=== PATIENT | female | born 1965 | race Caucasian/White ===

== ENCOUNTER 2016-04-14 20:23 | Emergency (ER) | payer OTHER ==
[2016-04-14 20:53] VITALS: RESP 18
[2016-04-14] MEDS ORDERED: SODIUM CHLORIDE 0.9% 1,000 ML IV STA ×2 (21:13)
[2016-04-14] MEDS ORDERED: ONDANSETRON 4 MG/2 ML VIAL IVP STA (21:13)
[2016-04-14] MEDS ORDERED: HYDROmorphone 1 MG/ML 1 ML SYRINGE IVP STA ×2 (21:13→22:28)
--- NOTE | 2016-04-14 21:15 | ED ---
General Adult HPI - General Chief complaint: Abdominal Pain Stated complaint: back & lower abdominal pain Time Seen by Provider: 04/14/16 21:05 Source: patient, RN notes reviewed Mode of arrival: wheelchair Limitations: no limitations - History of Present Illness Initial comments: Patient 51-year-old female who presents emergency room today with chief complaint of right-sided flank pain that started earlier this morning approximate 7:30 AM. She does admit that she's felt nauseated. She missed the pain is located on the right sides or to the back wraps around to the front. Patient states never had pain similar to this in the past. Patient denies any other associated symptoms or complaints. Patient denies any recent fever, chills , shortness of breath, chest pain, back pain, vomiting, numbness or tingling, dysuria or hematuria, constipation or diarrhea, headaches or visual changes, or any other complaints. - Related Data Previous Rx's Medication Instructions Recorded Hydrocodone/Acetaminophen [[place] 1 each PO Q6HR PRN #20 tab 04/14/16 5-325] Ibuprofen [Motrin] 600 mg PO Q6HR PRN #40 day 04/14/16 Ondansetron Odt [Zofran ODT] 4 mg PO Q8HR PRN #15 tab 04/14/16 Tamsulosin [Flomax] 0.4 mg PO DAILY #3 cap 04/14/16 Allergies Allergy/AdvReac Type Severity Reaction Status Date / Time Penicillins Allergy Unknown Verified 04/14/16 20:51 Review of Systems ROS Statement: Those systems with pertinent positive or pertinent negative responses have been documented in the HPI. ROS Other: All systems not noted in ROS Statement are negative. Past Medical History Past Medical History: Coronary Artery Disease (CAD), Chest Pain / Angina, Hyperlipidemia, Hypertension History of Any Multi-Drug Resistant Organisms: None Reported Past Surgical History: Section, Tonsillectomy, Tubal Ligation Past Psychological History: No Psychological Hx Reported Smoking Status: Current every day smoker Past Alcohol Use History: None Reported Past Drug Use History: None Reported General Exam - General Exam Comments Initial Comments: General: The patient is awake and alert, in no distress, and does not appear acutely ill. Eye: Pupils are equal, round and reactive to light, extra-ocular movements are intact. No nystagmus. There is normal conjunctiva bilaterally. No signs of icterus. Ears, nose, mouth and throat: There are moist mucous membranes and no oral lesions. Neck: The neck is supple, there is no tenderness or JVD. Cardiovascular: There is a regular rate and rhythm. No murmur, rub or gallop is appreciated. Respiratory: Lungs are clear to auscultation, respirations are non-labored, breath sounds are equal. No wheezes, stridor, rales, or rhonchi. Gastrointestinal: Normal appearance abdomen. Normal bowel sounds. Abdomen soft on palpation. Patient does have tenderness right upper quadrant with minimal tenderness in the right lower quadrant. Mild right-sided CVA tenderness. No guarding. No rebound. Musculoskeletal: Normal ROM, no tenderness. Strength 5/5. Sensation intact. Pulses equal bilaterally 2+. Neurological: A&O x 3. CN II-XII intact, There are no obvious motor or sensory deficits. Coordination appears grossly intact. Speech is normal. Skin: Skin is warm and dry and no rashes or lesions are noted. Psychiatric: Cooperative, appropriate mood & affect, normal judgment. Limitations: no limitations Course Vital Signs 04/14/16 20:51 Temperature 97.7 F Pulse Rate 77 Respiratory 18 Rate Blood Pressure 161/70 O2 Sat by Pulse 97 Oximetry Medical Decision Making - Medical Decision Making Patient's labs been reviewed urinalysis shows limited amount of blood. No sign of infection. Remaining labs reviewed. Patient's ultrasound negative for any acute abnormalities other than hydronephrosis on the right. CT does show 4 mm stone partially obstructing with hydronephrosis. Patient will be discharged home advised follow-up with urologist over the next 1-2 days. She'll be given pain medication along with Flomax and nausea medication go home with. Advised return if any symptoms increase or worsen or for any other concerns. Patient states understanding and is in agreement. - Lab Data Result diagrams: 04/14/16 21:28 04/14/16 21:28 Lab Results 04/14/16 04/14/16 04/14/16 Range/Units 21:28 21:28 21:28 WBC 8.1 (3.8-10.6) k/uL RBC 4.34 (3.80-5.40) m/uL Hgb 13.8 (11.4-16.0) gm/dL Hct 41.6 (34.0-46.0) % MCV 95.9 (80.0-100.0) fL MCH 31.8 (25.0-35.0) pg MCHC 33.1 (31.0-37.0) g/dL RDW 13.2 (11.5-15.5) % Plt Count 252 (150-450) k/uL Neutrophils % 72 % Lymphocytes % 17 % Monocytes % 5 % Eosinophils % 3 % Basophils % 1 % Neutrophils # 5.9 (1.3-7.7) k/uL Lymphocytes # 1.4 (1.0-4.8) k/uL Monocytes # 0.4 (0-1.0) k/uL Eosinophils # 0.2 (0-0.7) k/uL Basophils # 0.1 (0-0.2) k/uL Sodium 143 (137-145) mmol/L Potassium 4.1 (3.5-5.1) mmol/L Chloride 106 (98-107) mmol/L Carbon Dioxide 29 (22-30) mmol/L Anion Gap 8 mmol/L BUN 13 (7-17) mg/dL Creatinine 0.65 (0.52-1.04) mg/dL Est GFR (MDRD) Af Amer >60 (>60 ml/min/1.73 sqM) Est GFR (MDRD) Non-Af >60 (>60 ml/min/1.73 sqM) Glucose 105 H (74-99) mg/dL Calcium 9.3 (8.4-10.2) mg/dL Total Bilirubin 0.5 (0.2-1.3) mg/dL AST 20 (14-36) U/L ALT 30 (9-52) U/L Alkaline Phosphatase 108 (38-126) U/L Total Protein 7.1 (6.3-8.2) g/dL Albumin 4.0 (3.5-5.0) g/dL Amylase 32 (30-110) U/L Lipase 42 (23-300) U/L Urine Color Yellow Urine Appearance Clear (Clear) Urine pH 5.5 (5.0-8.0) Ur Specific [place] 1.023 (1.001-1.035) Urine Protein Negative (Negative) Urine Glucose (UA) Negative (Negative) Urine Ketones Negative (Negative) Urine Blood Large H (Negative) Urine Nitrate Negative (Negative) Urine Bilirubin Negative (Negative) Urine Urobilinogen <2.0 (<2.0) mg/dL Ur Leukocyte Esterase Negative (Negative) Urine RBC >182 H (0-5) /hpf Urine WBC 2 (0-5) /hpf Ur Squamous Epith Cells 1 (0-4) /hpf Urine Mucus Rare H (None) /hpf Disposition Clinical Impression: Kidney stone Disposition: HOME SELF-CARE Condition: Good Instructions: Kidney Stones (ED) Additional Instructions: Please use medication as discussed. Please follow-up with family doctor/ urologist in the next 2 days of symptoms have not improved. Please return to emergency room if the symptoms increase or worsen or for any other concerns. Prescriptions: Hydrocodone/Acetaminophen [[place] 5-325] 1 each PO Q6HR PRN #20 tab PRN Reason: Pain Ibuprofen [Motrin] 600 mg PO Q6HR PRN #40 day PRN Reason: Pain Ondansetron Odt [Zofran ODT] 4 mg PO Q8HR PRN #15 tab PRN Reason: Nausea Tamsulosin [Flomax] 0.4 mg PO DAILY #3 cap Time of Disposition: 23:25
[2016-04-14 21:50] LABS: Basophils # (A) 0.1 k/uL (0-0.2); Basophils % (A) 1 %; CH 31.7; CHCM 33.2; Eosinophils # (A) 0.2 k/uL (0-0.7); Eosinophils % (A) 3 %; HCT 41.6 % (34.0-46.0); HGB 13.8 gm/dL (11.4-16.0); Luc # (Auto) 0.19; Luc % (Auto) 2; Lymphocytes # (A) 1.4 k/uL (1.0-4.8); Lymphocytes % (A) 17 %; MCH 31.8 pg (25.0-35.0); MCHC 33.1 g/dL (31.0-37.0); MCV 95.9 fL (80.0-100.0); Mean Platelet Volume 7.2; Monocytes # (A) 0.4 k/uL (0-1.0); Monocytes % (A) 5 %; Neutrophils # (A) 5.9 k/uL (1.3-7.7); Neutrophils % (A) 72 %; RBC 4.34 m/uL (3.80-5.40); RDW 13.2 % (11.5-15.5); WBC 8.1 k/uL (3.8-10.6); WBC (Perox) 7.79
[2016-04-14 21:56] LABS: Appearance,Urine Clear (Clear); Bilirubin,Urine Negative (Negative); Glucose,Urine (UA) Negative (Negative); Ketones,Urine Negative (Negative); Leukocyte Esterase,Urine Negative (Negative); Mucus,Urine Rare /hpf; Nitrite,Urine Negative (Negative); PH, Urine 5.5 (5.0-8.0); Particle Count 5808; Protein,Urine Negative (Negative); RBC,Urine >182 /hpf (0-5); Specific Gravity,Urine 1.023 (1.001-1.035); Squamous Epithelial Cell,Urine 1 /hpf (0-4); UA Billing (MACRO vs. MICRO) MICRO; Urobilinogen,Urine <2.0 mg/dL (<2.0); WBC,Urine 2 /hpf (0-5)
--- NOTE | 2016-04-14 21:57 | XR ---
EXAMINATION TYPE: XR KUB DATE OF EXAM: 04/14/2016 9:50 PM COMPARISON: NONE HISTORY: Pain TECHNIQUE: Single supine KUB image of the abdomen is obtained FINDINGS: Small bowel demonstrates no evidence for dilatation or air fluid levels. Gas and fecal material is seen in non-distended colon. No convincing evidence for pneumoperitoneum. No unusual calcifications. The lung bases are clear. The osseous structures are intact. IMPRESSION: 1. Overall nonobstructive bowel gas pattern.
[2016-04-14 21:59] LABS: ALT 30 U/L (9-52); AST 20 U/L (14-36); Alkaline Phosphatase 108 U/L (38-126); Amylase 32 U/L (30-110); Anion Gap 8 mmol/L; Blood Urea Nitrogen 13 mg/dL (7-17); Calcium 9.3 mg/dL (8.4-10.2); Carbon Dioxide 29 mmol/L (22-30); Chloride 106 mmol/L (98-107); Glucose 105 mg/dL (74-99); Non-African American GFR(MDRD) >60 (>60 ml/min/1.73 sqM); Potassium 4.1 mmol/L (3.5-5.1); Sodium 143 mmol/L (137-145); Total Bilirubin 0.5 mg/dL (0.2-1.3); Total Protein 7.1 g/dL (6.3-8.2)
--- NOTE | 2016-04-14 22:54 | CT ---
EXAMINATION TYPE: CT abdomen pelvis wo con DATE OF EXAM: 04/14/2016 10:29 PM COMPARISON: NONE HISTORY: Right flank pain. CT DLP: 288.70 mGycm Automated exposure control for dose reduction was used. TECHNIQUE: Helical acquisition of images was performed from the lung bases through the pelvis. FINDINGS: LUNG BASES: No significant abnormality is appreciated. LIVER/GB: No significant abnormality is appreciated. PANCREAS: No significant abnormality is seen. SPLEEN: No significant abnormality is seen. ADRENALS: No significant abnormality is seen. KIDNEYS: Right kidney showed mild hydronephrosis and hydroureter changes. There is evidence of tiny 4 mm opaqu e density in the right pelvis near the right UV junction in the axial image 116 and coronal image 43 and is suspicious for partially obstructing stone in the distal right ureter. This is somewhat limite d evaluation due to multiple artifacts in the pelvis. Left kidney appears grossly unremarkable without obstructing opaque stones or hydronephrosis. Small c alcification in the left renal hilum is most likely related to vascular calcification. RETROPERITONEAL ADENOPATHY: None visualized REPRODUCTIVE ORGANS: No significant abnormality is seen URINARY BLADDER: The urinary bladder is not well distended and is limited for evaluation. PELVIC ADENOPATHY: None visualized. OSSEOUS STRUCTURES: Mild degenerative arthritic changes are present in the visualized lumbar spine. BOWEL: Moderate to large amount of fecal matter is noted in the cecum and ascending colon. No signif icant bowel obstruction changes are noted. Appendix is not well visualized. Visualized appendix area showed no significant inflammation. Visualized stomach and small bowel loops appear grossly unremarkable. OTHER: Mild diffuse atherosclerotic calcification is noted in the abdominal aorta and iliac arteries. Belly jewelry is noted. IMPRESSION: 1. SUSPECTED 4 MM PARTIALLY OBSTRUCTING STONE IN THE DISTAL RIGHT URETER IN THE PELVIS. A CLINICAL CO RRELATION IS RECOMMENDED. THERE IS MILD RIGHT HYDRONEPHROSIS AND HYDROURETER. 2. APPENDIX IS NOT WELL VISUALIZED. VISUALIZED APPENDIX AREA SHOWED NO SIGNIFICANT INFLAMMATION. A phone report is given to Fly Lindo, the PAC at the time of the dictation.
--- NOTE | 2016-04-14 23:16 | US ---
EXAMINATION TYPE: US abdomen limited DATE OF EXAM: 04/14/2016 10:51 PM COMPARISON: CT abdomen pelvis 04/14/2016. CLINICAL HISTORY: Rt side pain radiating to back. EXAM MEASUREMENTS: Liver Length: 16.8 cm Gallbladder Wall: 0.2 cm CHD: 0.2 cm Right Kidney: 12.1 x 5.6 x 5.4 cm TECHNOLOGIST IMPRESSION: Pancreas: tail not well seen due to overlying bowel gas, main pancreatic duct= 1.7mm Liver: wnl Gallbladder: wnl Evidence for sonographic Ontiveros's sign: neg CHD: wnl Right Kidney: Moderate hydronephrosis, no obstructing stone or mass seen IMPRESSION: 1. Liver is borderline enlarged in size. 2. No gallstones in the gallbladder. 3. Moderate right hydronephrosis is noted. No definite right kidney stones are noted.
[2016-04-14] MEDS ORDERED: KETOROLAC 30 MG/ML 1 ML VIAL IVP STA (23:24)
[2016-04-14 23:46] VITALS: BP 165/77; PULSE 89; TEMP 97.9
== END 2016-04-14 23:45 | disposition home or self-care (01) ==
LOC: EC 20:23
DX: N13.2 Hydronephrosis with renal and ureteral calculous obstruction (principal); Z88.0 Allergy status to penicillin; F17.200 Nicotine dependence, unspecified, uncomplicated
CPT/HCPCS: 36415; 80053; 82150; 83690; 85025; 81001; 74000; 76705; 74176; 99285; 96374; 96376; 96375; 96361; J2405; J1885; J1170

== ENCOUNTER → 2016-12-15 | Outpatient (CLI) | payer OTHER ==
--- NOTE | 2016-12-21 08:14 | MM ---
Reason for exam: screening (asymptomatic). History: Patient is postmenopausal. Physical Findings: A clinical breast exam by your physician is recommended on an annual basis and results should be correlated with mammographic findings. MG Screening Mammo w CAD Bilateral CC and MLO view(s) were taken. No prior studies available for comparison. There are scattered fibroglandular densities. 8mm mass appears circumscribed at 4 o'clock left breast. Otherwise, no significant mass, calcifications or other abnormality seen. ASSESSMENT: Incomplete: need additional imaging evaluation, BI-RAD 0 RECOMMENDATION: Special view mammogram and ultrasound of the left breast. [facility] will attempt to contact patient to return for supplemental views and ultrasound.
== END | disposition home or self-care (01) ==
LOC: RADMAMWWP 13:35
PROVIDERS: ATTEND Family Medicine
DX: Z12.31 Encounter for screening mammogram for malignant neoplasm of breast (principal)

== ENCOUNTER → 2016-12-30 | Outpatient (CLI) | payer OTHER ==
--- NOTE | 2016-12-30 12:47 | MM ---
Reason for exam: additional evaluation requested from abnormal screening. Last mammogram was performed less than 1 month ago. History: Patient is postmenopausal. Physical Findings: Nurse did not find any significant physical abnormalities on exam. MG Work Up Mamm w CAD LT ML view(s) were taken of the left breast. Prior study comparison: December 15, 2016, bilateral MG screening mammo w CAD. There are scattered fibroglandular densities. At 4 o'clock there is an 8mm ovoid, circumscribed mass. These results were verbally communicated with the patient and result sheet given to the patient on 12/30/16. ASSESSMENT: Incomplete: need additional imaging evaluation, BI-RAD 0 RECOMMENDATION: Ultrasound of the left breast. (lower outer quadrant) MTDD
--- NOTE | 2016-12-30 12:49 | USB ---
Reason for exam: additional evaluation requested from abnormal screening. History: Patient is postmenopausal. US Breast Workup Limited LT Left breast ultrasound demonstrates a 0.5 x 0.2 x 0.6cm solid lesion at 5 o'clock with some peripheral vascularity for which a biopsy is recommended. These results were verbally communicated with the patient and result sheet given to the patient on 12/30/16. ASSESSMENT: Suspicious, BI-RAD 4 RECOMMENDATION: Surgical consultation and ultrasound core biopsy of the left breast. Called with mammographic findings and has scheduled an appointment for the patient for 01/03/17 at 9:[address] Saleh. PRELIMINARY REPORT CALLED AND FAXED TO DR. SALEH ON 12/30/16.
== END | disposition home or self-care (01) ==
LOC: RADMAMWWP 09:00
PROVIDERS: ATTEND Family Medicine
DX: R92.8 Other abnormal and inconclusive findings on diagnostic imaging of breast (principal); Z85.3 Personal history of malignant neoplasm of breast
CPT/HCPCS: 76642; G0206

== ENCOUNTER → 2017-05-13 | Outpatient (CLI) | payer OTHER ==
--- NOTE | 2017-05-13 14:34 | XR ---
EXAMINATION TYPE: XR chest 2V DATE OF EXAM: 05/13/2017 COMPARISON: 03/21/2016 HISTORY: 52-year-old female hypoxemia TECHNIQUE: Frontal and lateral views FINDINGS: The cardiomediastinal silhouette, aorta, and pulmonary vasculature are within normal limits. Hazy low er lung densities related to overlying soft tissue. Within this limitation, no consolidation or pleur al effusion is seen. IMPRESSION: Some limitation in the lung bases due to overlying soft tissue density. Otherwise, no acute process s een.
== END | disposition home or self-care (01) ==
LOC: RADXRMAIN 12:39
PROVIDERS: ATTEND Family Medicine
DX: R91.8 Other nonspecific abnormal finding of lung field (principal); R09.02 Hypoxemia
CPT/HCPCS: 71046

== ENCOUNTER → 2017-05-13 | Outpatient (CLI) | payer OTHER ==
[2017-05-13 14:21] LABS: ABG Base Excess 1.4 mmol/L; ABG HCO3 26 mmol/L (21-25); ABG Oxygen Saturation 95.3 % (94-97); ABG PCO2 43 mmHg (35-45); ABG PO2 72 mmHg (83-108)
== END | disposition home or self-care (01) ==
LOC: LABWHC1 13:47
PROVIDERS: ATTEND Nurse Practitioner Family
DX: R09.2 Respiratory arrest (principal); J44.9 Chronic obstructive pulmonary disease, unspecified; R53.83 Other fatigue
CPT/HCPCS: 36600; 82805

== ENCOUNTER → 2017-09-15 | Outpatient (CLI) | payer OTHER ==
--- NOTE | 2017-09-15 10:03 | MM ---
Reason for exam: follow-up at short interval from prior study. Last mammogram was performed 8 months ago. History: Patient is postmenopausal. Benign US biopsy breast VAD LT of the left breast, January 19, 2017. Physical Findings: Nurse did not find any significant physical abnormalities on exam. MG 3D Diag Mammo W/Cad LT CC and MLO view(s) were taken of the left breast. Prior study comparison: January 19, 2017, left breast MG diagnostic mammo LT wo CAD. December 30, 2016, left breast MG work up mamm w CAD LT. There are scattered fibroglandular densities. Previous mammotome biopsy in the left breast. No significant new findings when compared with previous films. These results were verbally communicated with the patient and result sheet given to the patient on 09/15/17. ASSESSMENT: Benign, BI-RAD 2 RECOMMENDATION: Return to routine screening mammogram schedule for both breasts. Back on schedule for December 2017.
--- NOTE | 2017-09-15 10:05 | USB ---
Reason for exam: follow-up at short interval from prior study. History: Patient is postmenopausal. Benign US biopsy breast VAD LT of the left breast, January 19, 2017. US Breast LT Technologist: Jessica Pichardo RT (R)(M) Left complete breast ultrasound includes all four quadrants, the retroareolar region and axilla. Finding demonstrates no cystic or solid lesion seen. These results were verbally communicated with the patient and result sheet given to the patient on 09/15/17. ASSESSMENT: Negative, BI-RAD 1 RECOMMENDATION: Return to routine screening mammogram schedule for both breasts.
== END | disposition home or self-care (01) ==
LOC: RADMAMWWP 08:44
PROVIDERS: ATTEND Family Medicine
DX: R92.8 Other abnormal and inconclusive findings on diagnostic imaging of breast (principal)
CPT/HCPCS: 77061; 77065

== ENCOUNTER → 2018-03-06 | Outpatient (CLI) | payer OTHER ==
--- NOTE | 2018-03-06 14:11 | XR ---
EXAMINATION TYPE: XR chest 2V DATE OF EXAM: 03/06/2018 COMPARISON: 05/13/2017 TECHNIQUE: PA and lateral views submitted. HISTORY: Pain FINDINGS: There is a small right effusion with basilar consolidation but no pneumothorax. Appears to be deformi ty along the lateral rib cage with adjacent pleural thickening. Rib fracture suspected. Atherosclerot ic change aorta. Hyperinflation suggests COPD. Mild hypertrophic change of the spine. IMPRESSION: 1. Small right pleural effusion and pleural thickening. No pneumothorax. 2. Rib cage deformity along the lateral margin of the right mid rib level suspicious for fracture.
--- NOTE | 2018-03-06 14:14 | XR ---
EXAMINATION TYPE: XR ribs RT DATE OF EXAM: 03/06/2018 COMPARISON: NONE HISTORY: Pain TECHNIQUE: 4 views of the right rib cage submitted FINDINGS: There are deformities along the lateral margin of the right seventh rib compatible with ac benjamin fracture. Adjacent pleural thickening seen and there is a small right pleural effusion and basila r consolidation. No sizable pneumothorax. Arthropathy of the shoulder. IMPRESSION: Next line 1. Acute mildly displaced fracture right seventh rib with small right effusion and basilar consolidat ion but no sizable pneumothorax.
== END ==
LOC: RADXRMAIN 13:43
PROVIDERS: ATTEND Emergency Medicine
DX: S22.31XA Fracture of one rib, right side, initial encounter for closed fracture (principal); J90 Pleural effusion, not elsewhere classified
CPT/HCPCS: 71046

== ENCOUNTER → 2018-04-04 | Outpatient (CLI) | payer OTHER ==
--- NOTE | 2018-04-04 15:22 | XR ---
EXAMINATION TYPE: XR chest 2V DATE OF EXAM: 04/04/2018 COMPARISON: Prior chest x-ray 2017 HISTORY: Rib pain, fracture TECHNIQUE: Frontal and lateral views of the chest are obtained. FINDINGS: Previously identified rib fracture shows some probable healing change, local pleural thick ening along the right seventh rib laterally. Lateral exam show some bandlike areas of increased atten uation likely reflecting scarring or atelectasis. Prominent lung volumes may be indicative of underly ing COPD. Cardiomediastinal silhouette, pulmonary vascularity and luisa are stable. Pleural effusion h as resolved. No evident pneumothorax. IMPRESSION: Underlying scarring or atelectasis is suspected. Consider follow-up. Healing rib fractur e
== END ==
LOC: RADXRMAIN 10:25
PROVIDERS: ATTEND Internal Medicine Pulmonary Disease
DX: S22.39XD Fracture of one rib, unspecified side, subsequent encounter for fracture with routine healing (principal)
CPT/HCPCS: 71046

== ENCOUNTER → 2018-05-29 | Outpatient (CLI) | payer OTHER ==
--- NOTE | 2018-05-29 11:53 | XR ---
EXAMINATION TYPE: XR shoulder complete RT DATE OF EXAM: 05/29/2018 CLINICAL HISTORY: Right shoulder pain after a fall 4 days ago TECHNIQUE: Three views of the right shoulder are obtained. COMPARISON: None. FINDINGS: There is no acute fracture/dislocation evident in the right shoulder. The acromioclavicul ar and glenohumeral joint spaces appear within normal limits. The visualized ribs are intact and unr emarkable. IMPRESSION: There is no acute fracture or dislocation in the right shoulder.
--- NOTE | 2018-05-29 11:54 | XR ---
EXAMINATION TYPE: XR elbow complete RT DATE OF EXAM: 05/29/2018 CLINICAL HISTORY: Right elbow pain after fall 4 days ago TECHNIQUE: Frontal, lateral and oblique images of the right elbow are obtained. COMPARISON: None FINDINGS: There is no acute fracture/dislocation evident in the right elbow. No abnormal fat pad si gns are seen. The overlying soft tissue appears unremarkable. IMPRESSION: There is no acute fracture or dislocation in the right elbow.
--- NOTE | 2018-05-29 11:55 | XR ---
EXAMINATION TYPE: XR pelvis AP view DATE OF EXAM: 05/29/2018 CLINICAL HISTORY: Pelvic pain after fall 4 days ago TECHNIQUE: A single AP view of the pelvis is obtained. COMPARISON: None. FINDINGS: There is no acute fracture/dislocation evident in the pelvis. The hip and sacroiliac join ts appear symmetric and unremarkable. Degenerative changes are seen at the lumbosacral junction. The overlying soft tissue appears unremarkable. IMPRESSION: There is no acute fracture or dislocation in the pelvis.
--- NOTE | 2018-05-29 11:55 | XR ---
Left hand HISTORY: Trauma and pain Reviews of the left hand Bone mineralization is mildly reduced. Joint spaces show some decreased distance. Alignment is mainta ined. IMPRESSION: No fracture or dislocation. Mild arthropathy changes, possible osteopenia
--- NOTE | 2018-05-29 11:56 | XR ---
Sacrum and coccyx HISTORY: Trauma and pain 3 views of the sacrum and coccyx Bone mineralization is reduced which may limit sensitivity. Alignment is maintained. Vascular calcifi cations noted incidentally. IMPRESSION: No acute fracture or dislocation. Follow-up as indicated.
--- NOTE | 2018-05-29 11:57 | XR ---
EXAMINATION TYPE: XR lumbar spine 2 or 3V DATE OF EXAM: 05/29/2018 CLINICAL HISTORY: Back pain after fall 4 days ago TECHNIQUE: Frontal and lateral images of the lumbar spine were obtained. COMPARISON: CT abdomen pelvis dated 04/14/2016 FINDINGS: There are 5 lumbar type vertebral bodies identified. The lumbar spine shows satisfactory alignment without evidence of acute fracture or dislocation. Vertebral body heights and disk space he ights are within normal limits. Slight downsloping of the most anterior aspect of the L4 vertebral wagner dy of the superior endplate is unchanged from the CT abdomen pelvis dated 04/14/2016. Facet arthropath y is seen from L3 through S1. Mild atherosclerosis of the abdominal aorta and its branches are noted. The overlying soft tissue appears unremarkable. IMPRESSION: No acute fracture or dislocation is seen in the lumbar spine. Mild multilevel degenerati ve disc disease of the lumbar spine unchanged from the exam of 2017.
== END ==
LOC: RADXRMAIN 10:06
PROVIDERS: ATTEND Emergency Medicine
DX: S40.011A Contusion of right shoulder, initial encounter (principal); S50.01XA Contusion of right elbow, initial encounter; S60.222A Contusion of left hand, initial encounter; M51.36 Other intervertebral disc degeneration, lumbar region
CPT/HCPCS: 72100; 72170; 72220

== ENCOUNTER → 2018-11-10 | Outpatient (CLI) | payer OTHER ==
--- NOTE | 2018-11-11 10:11 | US ---
EXAMINATION TYPE: US thyroid st tissue head/neck DATE OF EXAM: 11/10/2018 COMPARISON: NONE CLINICAL HISTORY: R09.89 SYPMPTOMS INVOLVING CIRCULATORY AND RESPITORY SYSTEMS. Sensation of foreign body in throat GLAND SIZE: Right Lobe: 4.6 x 1.7 x 2.0 cm Overall Parenchyma: heterogeneous lower pole Left Lobe: 4.6 x 1.4 x 1.4 cm Overall Parenchyma: homogeneous Isthmus Thickness: 0.3 cm NODULES RIGHT: # of nodules measured on right: 0 LEFT: # of nodules measured on left: 0 ISTHMUS: # of nodules measured in the isthmus: 0 Bilateral neck scanned, no evidence of lymphadenopathy. IMPRESSION: No distinct abnormality appreciated at this time.
== END | disposition home or self-care (01) ==
LOC: RADUSWWP 15:48
PROVIDERS: ATTEND Family Medicine
DX: R09.89 Other specified symptoms and signs involving the circulatory and respiratory systems (principal)
CPT/HCPCS: 76536

== ENCOUNTER → 2018-12-01 | Outpatient (CLI) | payer OTHER ==
--- NOTE | 2018-12-04 09:12 | MM ---
Reason for exam: screening (asymptomatic). Last mammogram was performed 1 year and 2 months ago. History: Patient is postmenopausal. Benign US biopsy breast VAD LT of the left breast, January 19, 2017. Physical Findings: A clinical breast exam by your physician is recommended on an annual basis and results should be correlated with mammographic findings. MG Screening Mammo w CAD Bilateral CC and MLO view(s) were taken. Prior study comparison: September 15, 2017, left breast MG 3d diag mammo w/cad LT. January 19, 2017, left breast MG diagnostic mammo LT wo CAD. There are scattered fibroglandular densities. Previous mammotome biopsy in the left breast. There is chronic nodularity bilaterally. There is no discrete abnormality. ASSESSMENT: Benign, BI-RAD 2 RECOMMENDATION: Routine screening mammogram of both breasts in 1 year.
== END ==
LOC: RADMAMWWP 11:10
PROVIDERS: ATTEND Family Medicine
DX: Z12.31 Encounter for screening mammogram for malignant neoplasm of breast (principal)
CPT/HCPCS: 77067

== ENCOUNTER → 2019-06-01 | Day surgery (SDC) | payer OTHER ==
[2019-05-30 12:02] VITALS: BMI 36.6
[~2019-06-01] MED LIST: LACTATED RINGERS 1,000 ML IV SCH; LIDOCAINE 1% (10MG/ML) FOR IV START INTRADERMA PRN; LIDOCAINE 1% (10MG/ML) FOR IV START SQ ONE; LIDOCAINE 1% INJ 10MG/ML (20 ML MDV) ONE; PROPOFOL 10 MG/ML 20 ML VIAL IV ONE
[2019-06-01 07:12] VITALS: TEMP 97.1
[2019-06-01 07:31] LABS: Glucose,Whole Blood 95 mg/dL (75-99)
--- NOTE | 2019-06-01 07:47 | P.PCN ---
Date of Procedure: 06/01/19 Procedure(s) Performed: Brief history: Patient is a pleasant 54-year-old white female, scheduled for an elective upper endoscopy as well as colonoscopy as a part of evaluation of GERD and screening for colorectal neoplasia. Procedure performed: Esophagogastroduodenoscopy with biopsy Colonoscopy Preoperative diagnosis: GERD Screening for colon cancer Anesthesia: MAC Procedure: After informed consent was obtained from the patient was brought into the endoscopy unit and IV sedation was administered by anesthesia under continuous monitoring. Initially upper endoscopy was done. The Olympus GF 160 video endoscope was inserted inserted into the mouth and esophagus intubated without any difficulty and was gradually advanced into the stomach and duodenum and carefully examined. The bulb and second part of the duodenum appeared normal. The scope was then withdrawn into the stomach adequately insufflated with air and upon careful examination the antrum had mild gastritis and biopsies were done from this area. The body, cardia and fundus appeared normal. The scope was then withdrawn into the esophagus. The GE junction was located at 40 cm to the incisors. It appeared irregular with no erythema erosions or ulcerations. Biopsies were done from the distal esophagus. Rest of the esophagus appeared normal. Patient tolerated the procedure well. At this time the patient continued to remain sedation. Initial digital rectal examination was normal. Olympus CF 160 video colonoscope was then inserted into the rectum and gradually advanced to the cecum without any difficulty. Careful examination was performed as the scope was gradually being withdrawn. The prep was excellent. The cecum, ascending colon, transverse colon, descending colon, sigmoid colon and rectum appeared normal. Retroflexion was performed in the rectum and no lesions were noted. Patient tolerated the procedure well. Impression: 1. Upper endoscopy revealed mild antral gastritis and a small sliding type hiatal hernia. 2. Colonoscopy was essentially within normal limits with no evidence of colitis or colorectal neoplasia. Recommendations: Findings of this examination were discussed with the patient as well as her family. She was advised to follow with the biopsy results. She will continue with omeprazole 20 mg daily and follow antireflux measures. She was advised to have a repeat screening colonoscopy in 10 years.
[2019-06-01 07:57] VITALS: RESP 16
[2019-06-01 08:11] VITALS: BP 120/78; PULSE 80
== END ==
LOC: ORWHC2ENDO 06:44
PROVIDERS: ATTEND Internal Medicine Gastroenterology
DX: Z12.11 Encounter for screening for malignant neoplasm of colon (principal); K29.50 Unspecified chronic gastritis without bleeding; K44.9 Diaphragmatic hernia without obstruction or gangrene; I10 Essential (primary) hypertension; E78.5 Hyperlipidemia, unspecified; J44.9 Chronic obstructive pulmonary disease, unspecified; J45.901 Unspecified asthma with (acute) exacerbation; Z87.891 Personal history of nicotine dependence; M79.7 Fibromyalgia; Z97.2 Presence of dental prosthetic device (complete) (partial); Z79.84 Long term (current) use of oral hypoglycemic drugs; Z79.1 Long term (current) use of non-steroidal anti-inflammatories (NSAID); Z79.82 Long term (current) use of aspirin; Z79.899 Other long term (current) drug therapy; Z88.0 Allergy status to penicillin
CPT/HCPCS: 88305; 43239; J2001; J2704; G0121; 45378

== ENCOUNTER → 2020-04-25 | Outpatient (CLI) | payer OTHER ==
--- NOTE | 2020-04-26 10:40 | US ---
EXAMINATION TYPE: US transvaginal DATE OF EXAM: 04/25/2020 COMPARISON: NONE CLINICAL HISTORY: R10.2 Acute pelvic pain. TECHNIQUE: Transvaginal (TV). Patient unable to fill her bladder for transabdominal exam. Date of LMP: postmenopausal EXAM MEASUREMENTS: Uterus: 6.1 x 2.5 x 3.5 cm Endometrial Stripe: 0.4 cm Right Ovary: obscured by overlying bowel/atrophy/obesity Left Ovary: obscured by overlying bowel/atrophy/obesity 1. Uterus: probable small calcified fibroid measuring 0.4 x 0.4 x 0.4cm 2. Endometrium: wnl 3. Right Ovary: obscured by overlying bowel/atrophy/obesity 4. Left Ovary: obscured by overlying bowel/atrophy/obesity 5. Bilateral Adnexa: wnl 6. Posterior cul-de-sac: wnl IMPRESSION: Fibroid uterus. Limited exam.
== END | disposition home or self-care (01) ==
LOC: RADUSWWP 16:22
PROVIDERS: ATTEND Family Medicine
DX: D25.9 Leiomyoma of uterus, unspecified (principal)
CPT/HCPCS: 76830

== ENCOUNTER → 2020-07-01 | Outpatient (CLI) | payer OTHER ==
--- NOTE | 2020-07-03 10:54 | MM ---
Reason for exam: screening (asymptomatic). Last mammogram was performed 1 year and 7 months ago. History: Patient is postmenopausal. Benign US biopsy breast VAD LT of the left breast, January 19, 2017. Physical Findings: A clinical breast exam by your physician is recommended on an annual basis and results should be correlated with mammographic findings. MG Screening Mammo w CAD Bilateral CC and MLO view(s) were taken. Prior study comparison: December 01, 2018, bilateral MG screening mammo w CAD. September 15, 2017, left breast MG 3d diag mammo w/cad LT. There are scattered fibroglandular densities. Previous mammotome biopsy in the left breast. No significant changes when compared with prior studies. ASSESSMENT: Benign, BI-RAD 2 RECOMMENDATION: Routine screening mammogram of both breasts in 1 year.
== END | disposition home or self-care (01) ==
LOC: RADMAMWWP 14:52
PROVIDERS: ATTEND Family Medicine
DX: Z12.31 Encounter for screening mammogram for malignant neoplasm of breast (principal)
CPT/HCPCS: 77067

== ENCOUNTER 2020-07-12 13:57 | Emergency (ER) | payer OTHER ==
[2020-07-12 14:11] VITALS: RESP 18
[2020-07-12] MEDS ORDERED: SODIUM CHLORIDE 0.9% 500 ML 500 ML IV STA (14:40)
[2020-07-12] MEDS ORDERED: ONDANSETRON 4 MG/2 ML VIAL IVP STA (14:42)
--- NOTE | 2020-07-12 14:50 | ED ---
URI HPI - General Chief Complaint: Upper Respiratory Infection Stated Complaint: SOB,Fever,Poss COVID Time Seen by Provider: 07/12/20 14:17 Source: patient, family, RN notes reviewed Mode of arrival: ambulatory Limitations: no limitations - History of Present Illness Initial Comments: 55-year-old white female patient, alert and oriented 4, complains of 2 days of nausea, body aches, dizziness, and fatigue. Patient states yesterday had a fever 101.9 however did received the [employer] covid vaccine 1 week ago. Patient denies any vomiting or diarrhea but does endorse dizziness with movement or change in position. Patient has a history of COPD, angina, borderline diabetes being treated with metformin, and fibromyalgia. Patient lives with her sister states has been staying in room since she became ill 2 days ago. Patient states decreased appetite however has been able to tolerate fluids. Denies hematochezia, hematemesis, or hematuria. Patient uses oxygen 3 L at home. MD Complaint: cough -: days(s) (2) Severity scale (1-10): 10 Consistency: constant Context: other (covid vaccine J&J one week ago) Associated Symptoms: myalgias, other (dizziness) - Related Data Home Medications Medication Instructions Recorded Confirmed Albuterol Inhaler (Mhu) [Ventolin 1 - 2 puff INHALATION Q6HR PRN 01/04/17 06/01/19 Hfa Inhaler] Aspirin [Adult Low Dose Aspirin EC] 81 mg PO DAILY 01/04/17 05/30/19 Atorvastatin [Lipitor] 40 mg PO DAILY 01/04/17 06/01/19 Isosorbide Mononitrate [Imdur] 120 mg PO DAILY 01/04/17 06/01/19 Multivitamin,Therapeutic [Thera] 1 each PO DAILY 01/04/17 05/30/19 Cyanocobalamin (Vitamin B-12) 1,000 mcg PO DAILY 05/30/19 06/01/19 [Vitamin B-12] DULoxetine HCL [Cymbalta] 60 mg PO DAILY 05/30/19 06/01/19 Gabapentin [Neurontin] 100 mg PO BID 05/30/19 06/01/19 Gabapentin [Neurontin] 300 mg PO HS 05/30/19 06/01/19 Glycopyrrolate/Formoterol Fum 2 puff INHALATION BID 05/30/19 06/01/19 [Bevespi Aerosphere Inhaler] Ipratropium-Albuterol Nebulize 3 ml INHALATION QID PRN 05/30/19 06/01/19 [Duoneb 0.5 mg-3 mg/3 ml Soln] Losartan [Cozaar] 25 mg PO HS 05/30/19 06/01/19 Meloxicam 15 mg PO DAILY 05/30/19 05/30/19 Montelukast [Singulair] 10 mg PO DAILY 05/30/19 06/01/19 Omeprazole [PriLOSEC] 40 mg PO DAILY 05/30/19 06/01/19 Verapamil HCl [Verapamil ER] 180 mg PO DAILY 05/30/19 06/01/19 hydroCHLOROthiazide 25 mg PO DAILY 05/30/19 06/01/19 metFORMIN HCL [Glucophage] 500 mg PO BID 05/30/19 06/01/19 Allergies Allergy/AdvReac Type Severity Reaction Status Date / Time Penicillins Allergy Unknown Verified 07/12/20 14:11 Review of Systems ROS Statement: Those systems with pertinent positive or pertinent negative responses have been documented in the HPI. ROS Other: All systems not noted in ROS Statement are negative. Past Medical History Past Medical History: Chest Pain / Angina, COPD, Fibromyalgia, Hyperlipidemia, Hypertension Additional Past Medical History / Comment(s): O2 dependent 3L/nc History of Any Multi-Drug Resistant Organisms: None Reported Past Surgical History: Section, Tonsillectomy, Tubal Ligation Additional Past Surgical History / Comment(s): c-sectionx2 Past Anesthesia/Blood Transfusion Reactions: No Reported Reaction Additional Past Anesthesia/Blood Transfusion Reaction / Comment(s): No blood transfusions reported Past Psychological History: No Psychological Hx Reported Smoking Status: Former smoker Past Alcohol Use History: Rare Past Drug Use History: None Reported - Past Family History Mother Family Medical History: No Reported History General Exam Limitations: no limitations General appearance: alert, in no apparent distress Head exam: Present: atraumatic, normocephalic, normal inspection Eye exam: Present: normal appearance, PERRL, EOMI. Absent: scleral icterus, conjunctival injection, periorbital swelling Pupils: Present: normal accommodation ENT exam: Present: normal exam, mucous membranes moist Neck exam: Present: normal inspection, full ROM. Absent: tenderness, meningismus, lymphadenopathy Respiratory exam: Present: decreased breath sounds. Absent: respiratory distress, wheezes, rhonchi, stridor, chest wall tenderness, accessory muscle use Cardiovascular Exam: Present: tachycardia, normal heart sounds. Absent: JVD GI/Abdominal exam: Present: soft, normal bowel sounds, other (umbilical piercing). Absent: distended, tenderness, guarding, rebound, rigid Rectal exam: Present: deferred Extremities exam: Present: normal inspection, full ROM, normal capillary refill. Absent: tenderness, pedal edema, joint swelling, calf tenderness Back exam: Present: normal inspection, full ROM. Absent: tenderness, CVA tenderness (R), CVA tenderness (L) Neurological exam: Present: alert, oriented X3, CN II-XII intact Psychiatric exam: Present: normal affect, normal mood Skin exam: Present: warm, dry, intact, normal color. Absent: rash, cyanosis, diaphoretic, erythema Course Vital Signs 07/12/20 07/12/20 14:07 15:10 Temperature 98.4 F 98.9 F Pulse Rate 109 H 88 Respiratory 18 18 Rate Blood Pressure 108/69 131/89 O2 Sat by Pulse 95 94 L Oximetry Medical Decision Making - Medical Decision Making Patient received dose of [employer] covid vaccine last week, developed cough, fever and fatigue 2 days ago. Oxygen saturation 95%. Patient denies chest pain. Patient denies vomiting or diarrhea, able to hydrate well at home. Patient was given monoclonal antibodies infusion for her risk factor of COPD. Patient tolerated the infusion well will be discharged to follow up with primary care doctor. case discussed with Dr. Pedroza who was agreeable to this plan - Lab Data Lab Results 07/12/20 Range/Units 14:13 Coronavirus (PCR) Detected A (Not Detectd) - EKG Data EKG shows normal: sinus rhythm Rate: tachycardia (Ventricular rate 101, ND of 0.15, QRS 0.86, QTC 0.433. Sinus tachycardia) Disposition Clinical Impression: COVID-19 Disposition: HOME SELF-CARE Condition: Good Instructions (If sedation given, give patient instructions): Coronavirus Disease 2019 (COVID-19) Additional Instructions: Return to the emergency room with worsening symptoms, cough, fatigue or chest pain. Follow-up with the primary care doctor in 1 week. Take vitamin D, vitamin C, and zinc. Tylenol for fevers. Increase your fluid intake. Is patient prescribed a controlled substance at d/c from ED?: No Referrals: Juni Saleh MD [Primary Care Provider] - 1-2 days Time of Disposition: 16:48
[2020-07-12] MEDS ORDERED: SODIUM CHLORIDE 0.9% 50 ML IVPB ONE (15:00)
[2020-07-12 15:22] VITALS: TEMP 98.9
[2020-07-12] MEDS ORDERED: BAMLANIVIMAB (EUA) 700 MG, ETESEVIMAB (EUA) 1,400 MG in SODIUM CHLORIDE 0.9% 50 ML IVPB ONE (15:30)
--- NOTE | 2020-07-12 15:43 | XR ---
EXAMINATION TYPE: XR chest 2V DATE OF EXAM: 07/12/2020 COMPARISON: 04/04/2018 HISTORY: Cough TECHNIQUE: FINDINGS: Heart is normal. There are no hilar masses. Mediastinum within normal limits. There is some minimal increased interstitial density in the lower lung granados. There is no pleural effusion. No he art failure. Bony thorax is intact. IMPRESSION: Slight increased interstitial markings in the lower lobes compared to old exam. No pulmon jennifer consolidation or heart failure. There is question of a new 1 cm nodule at the lateral left lung b ase.
[2020-07-12 16:58] VITALS: BP 134/78; PULSE 80
== END 2020-07-12 16:58 | disposition home or self-care (01) ==
LOC: EC 13:57
DX: U07.1 COVID-19 (principal); J44.9 Chronic obstructive pulmonary disease, unspecified; M79.7 Fibromyalgia; I10 Essential (primary) hypertension; E78.5 Hyperlipidemia, unspecified; Z99.81 Dependence on supplemental oxygen; Z87.891 Personal history of nicotine dependence; Z88.0 Allergy status to penicillin; Z79.899 Other long term (current) drug therapy; Z79.1 Long term (current) use of non-steroidal anti-inflammatories (NSAID); Z79.51 Long term (current) use of inhaled steroids; Z79.82 Long term (current) use of aspirin
CPT/HCPCS: 93005; 87635; 71046; 99285; 96374; 96361; J2405; Q0245

== ENCOUNTER → 2021-07-16 | Outpatient (CLI) | payer MEDICARE, OTHER ==
--- NOTE | 2021-07-17 13:34 | MM ---
Reason for exam: screening (asymptomatic). Last mammogram was performed 1 year ago. History: Patient is postmenopausal. Benign US biopsy breast VAD LT of the left breast, January 19, 2017. Physical Findings: A clinical breast exam by your physician is recommended on an annual basis and results should be correlated with mammographic findings. MG 3D Screening Mammo W/Cad Bilateral CC and MLO view(s) were taken. Prior study comparison: July 01, 2020, bilateral MG screening mammo w CAD. December 01, 2018, bilateral MG screening mammo w CAD. There are scattered fibroglandular densities. No significant changes when compared with prior studies. ASSESSMENT: Benign, BI-RAD 2 RECOMMENDATION: Routine screening mammogram of both breasts in 1 year.
== END | disposition home or self-care (01) ==
LOC: RADMAMWWP 12:30
PROVIDERS: ATTEND Family Medicine
DX: Z12.31 Encounter for screening mammogram for malignant neoplasm of breast (principal); Z78.0 Asymptomatic menopausal state
CPT/HCPCS: 77063; 77067

== ENCOUNTER → 2022-07-19 | Outpatient (CLI) | payer MEDICARE, OTHER ==
--- NOTE | 2022-07-20 08:07 | MM ---
Reason for Exam: Screening (asymptomatic). Last screening mammogram was performed 12 month(s) ago. Patient History: Menarche at age 7. First Full-Term at age 16. Postmenopausal. 01/19/2017, Benign Core Biopsy on the left side. Risk Values: Izabel 5 year model risk: 1.3%. NCI Lifetime model risk: 7.0%. Prior Study Comparison: 12/01/2018 Bilateral Screening Mammogram, [facility]. 07/01/2020 Bilateral Screening Mammogram, [facility]. 07/16/2021 Bilateral Screening Mammogram, [facility]. Tissue Density: There are scattered fibroglandular densities. Findings: Analyzed By CAD. There is no suspicious group of microcalcifications or new suspicious mass in either breast. Overall Assessment: Negative, BI-RAD 1 Management: Screening Mammogram of both breasts in 1 year. A clinical breast exam by your physician is recommended on an annual basis and results should be correlated with mammographic findings. Electronically signed and approved by: Obed Jarvis M.D. Radiologis
== END | disposition home or self-care (01) ==
LOC: RADMAMWWP 11:07
PROVIDERS: ATTEND Family Medicine
DX: Z12.31 Encounter for screening mammogram for malignant neoplasm of breast (principal); Z78.0 Asymptomatic menopausal state
CPT/HCPCS: 77063; 77067

== ENCOUNTER → 2023-07-21 | Outpatient (CLI) | payer MEDICARE, OTHER ==
--- NOTE | 2023-07-25 11:50 | MM ---
Reason for Exam: Screening (asymptomatic). Last screening mammogram was performed 12 month(s) ago. Patient History: Menarche at age 7. First Full-Term at age 16. Postmenopausal. 01/19/2017, Benign Core Biopsy on the left side. Risk Values: Izabel 5 year model risk: 1.3%. NCI Lifetime model risk: 6.9%. Prior Study Comparison: 07/01/2020 Bilateral Screening Mammogram, [facility]. 07/16/2021 Bilateral Screening Mammogram, [facility]. 07/19/2022 Bilateral MG 3D screening mammo w/cad, [facility]. Tissue Density: The breasts are almost entirely fatty. Findings: Analyzed By CAD. Left breast biopsy clip. Right breast: There is no suspicious group of microcalcifications or new suspicious mass. Left breast: There is no suspicious group of microcalcifications or new suspicious mass. Overall Assessment: Benign, BI-RAD 2 Management: Screening Mammogram of both breasts in [address] [facility] will attempt to contact patient to return for supplemental views and ultrasound if indicated. Patient should continue monthly self-breast exams. A clinical breast exam by your physician is recommended on an annual basis. This exam should not preclude additional follow-up of suspicious palpable abnormalities. Note on Izabel scores and lifetime risk: 1. A Izabel score greater than 3% is considered moderate risk. If this is the case, consider specialist referral to assess eligibility for a risk reducing agent. 2. If overall lifetime risk for the development of breast cancer is 20% or higher, the patient may qualify for future screening with alternating mammogram and breast MRI. Electronically signed and approved by: Eligio Carrillo DO
== END | disposition home or self-care (01) ==
LOC: RADMAMWWP 13:41
PROVIDERS: ATTEND Family Medicine
DX: Z12.31 Encounter for screening mammogram for malignant neoplasm of breast (principal); Z78.0 Asymptomatic menopausal state
CPT/HCPCS: 77063; 77067

== ENCOUNTER → 2024-07-23 | Outpatient (CLI) | payer MEDICARE, OTHER ==
--- NOTE | 2024-07-23 14:36 | MM ---
Reason for Exam: Screening (asymptomatic). Last screening mammogram was performed 12 month(s) ago. Patient History: Menarche at age 7. First Full-Term at age 16. Postmenopausal. 01/19/2017, Benign Core Biopsy on the left side. Risk Values: Izabel 5 year model risk: 1.4%. NCI Lifetime model risk: 6.7%. Prior Study Comparison: 07/16/2021 Bilateral Screening Mammogram, [facility]. 07/19/2022 Bilateral MG 3D screening mammo w/cad, [facility]. 07/21/2023 Bilateral MG 3D screening mammo w/cad, [facility]. Tissue Density: There are scattered areas of fibroglandular density. Findings: Analyzed By CAD. Mammotome biopsy clip in the left breast is redemonstrated. Benign-appearing bilateral axillary lymph nodes are again seen. There is no suspicious new group of microcalcifications or new suspicious mass in either breast. Overall Assessment: Benign, BI-RAD 2 Management: Screening Mammogram of both breasts in 1 year. . Patient should continue monthly self-breast exams. A clinical breast exam by your physician is recommended on an annual basis. This exam should not preclude additional follow-up of suspicious palpable abnormalities. Note on Izabel scores and lifetime risk: 1. A Izabel score greater than 3% is considered moderate risk. If this is the case, consider specialist referral to assess eligibility for a risk reducing agent. 2. If overall lifetime risk for the development of breast cancer is 20% or higher, the patient may qualify for future screening with alternating mammogram and breast MRI. [facility], , 07/23/2024 2:32 PM. Electronically signed and approved by: Mau Sykes M.D.
== END | disposition home or self-care (01) ==
LOC: RADMAMWWP 13:58
PROVIDERS: ATTEND Family Medicine
DX: Z12.31 Encounter for screening mammogram for malignant neoplasm of breast (principal); R92.323 Mammographic fibroglandular density, bilateral breasts; Z78.0 Asymptomatic menopausal state
CPT/HCPCS: 77063; 77067